=== PATIENT | female | born 1970 | race Two or more races ===

== ENCOUNTER → 2023-11-16 | Outpatient (CLI) | payer MEDICAID | END | disposition home or self-care (01) | LOC: RAD 17:24 | PROVIDERS: ATTEND Student in an Organized Health Care Education/Training Program | DX: M19.011 Primary osteoarthritis, right shoulder (principal); M54.50 Low back pain, unspecified; M25.511 Pain in right shoulder; M77.9 Enthesopathy, unspecified; M46.1 Sacroiliitis, not elsewhere classified; M47.817 Spondylosis without myelopathy or radiculopathy, lumbosacral region; M25.78 Osteophyte, vertebrae; I70.0 Atherosclerosis of aorta; Z90.49 Acquired absence of other specified parts of digestive tract | CPT/HCPCS: 72100; 73030 ==

== ENCOUNTER 2023-12-27 08:21 | Outpatient (CLI) | payer MEDICAID | END 2023-12-27 23:59 | disposition home or self-care (01) | LOC: RAD 08:21 | PROVIDERS: ATTEND Family Medicine | DX: Z87.828 Personal history of other (healed) physical injury and trauma (principal) | CPT/HCPCS: 70450 ==

== ENCOUNTER 2024-10-01 08:42 | Inpatient (IN) | payer MEDICAID ==
[~2024-10-01] VITALS: Ht 175.3 cm; Wt 120.0 kg
--- NOTE | 2024-10-01 09:03 | ELECTROCARDIOGRAPH REPORT ---
[facility] Test Date: 2024-10-01 Test Time: 09:01:05 Pat Name: BRANDO MO Department: [facility]- Patient ID: [id number] Room: [place] [address] Gender: M Adult Education Teacher: : 1970 Requested By: ISAIAS COLE Order Number: [id number] Reading MD: Dr. Andrew Bernard Measurements Intervals [place] Rate: 52 P: 43 AL: 209 QRS: 19 QRSD: 112 T: 55 QT: 424 QTc: 395 Interpretive Statements Sinus bradycardia Borderline prolonged AL interval Anterior infarct, acute (LAD) Electronically Signed On 10-02-2024 19:02:[address] Andrew Bernard Please click the below link to view image of tracing.
[2024-10-01 09:07] LABS: BASOPHILS % (AUTO) 0.4 % (0-1); EOSINOPHILS # (AUTO) 0.1 X10'3 (0-0.9); EOSINOPHILS % (AUTO) 1.4 % (0-6); HEMATOCRIT 44.2 % (35.0-45.0); HEMOGLOBIN 14.5 g/dl (12.0-16.0); LYMPHOCYTES # (AUTO) 1.8 X10'3 (1.1-4.8); LYMPHOCYTES % (AUTO) 34.4 % (21-51); MEAN CORPUSCULAR HEMOGLOBIN 27.1 PG (27.0-31.0); MEAN CORPUSCULAR HGB CONC 32.9 g/dL (33.0-36.5); MEAN CORPUSCULAR VOLUME 82.6 FL (78-98); MEAN PLATELET VOLUME 9.7 FL (7.4-10.4); MONOCYTES # (AUTO) 0.4 X10'3 (0-0.9); MONOCYTES % (AUTO) 7.4 % (2-12); NEUTROPHILS % (AUTO) 56.4 % (42-75); PLATELET COUNT 116 X10'3 (140-440); RED BLOOD COUNT 5.35 X10'6 (4.20-5.60); RED CELL DISTRIBUTION WIDTH 14.1 % (11.5-14.5); WHITE BLOOD COUNT 5.3 X10'3 (4.5-11.0)
--- NOTE | 2024-10-01 09:26 | RADIOLOGY REPORT ---
DI CHEST,SINGLE VIEW, HISTORY: CP COMPARISON: None None TECHNICAL DATA: 1 view of the chest was obtained. FINDINGS: Lines and tubes: None Cardiomediastinal silhouette: prominent Pulmonary vasculature: normal Lung expansion: normal Lung airspace: normal Lung interstitium: normal Pleura: normal Pneumothorax: no Bones: Unremarkable Other: no IMPRESSION: No acute intrathoracic abnormality.
[2024-10-01 09:28] LABS: ALANINE AMINOTRANSFERASE 62 U/L (12-78); ALBUMIN 3.9 G/DL (3.4-5.0); ALBUMIN/GLOBULIN RATIO 1.1 (1.1-1.5); ALKALINE PHOSPHATASE 82 IU/L (46-116); ANION GAP 4 (8-16); ASPARTATE AMINO TRANSFERASE 43 U/L (10-37); BILIRUBIN,TOTAL 0.7 MG/DL (0.1-1.0); BLOOD UREA NITROGEN 14 MG/DL (7-18); BUN/CREATININE RATIO 13.5 (10.0-20.0); CALCIUM 8.6 MG/DL (8.5-10.1); CHLORIDE 105 MMOL/L (99-107); CREATININE 1.04 MG/DL (0.40-0.90); GLUCOSE 101 MG/DL (70-104); POTASSIUM 3.7 MMOL/L (3.5-5.1); SODIUM 142 MMOL/L (135-145); TOTAL CARBON DIOXIDE 32.8 MMOL/L (24-32); TOTAL PROTEIN 7.3 G/DL (6.4-8.2); eCRCL 63 ML/MIN; eGFR 55 ML/MIN
[2024-10-01 09:29] LABS: PRO BRAIN NATRIURETIC PEPTIDE 86 PG/ML (0-125)
--- NOTE | 2024-10-01 09:40 | Physician Documentation ---
History of Present Illness ~ Chief Complaint: Hypertension Stated Complaint: HIGH BP Time Seen by MD: 09:03 Primary Medical Doctor: NONE Mode of Arrival: POV, Ambulatory HPI 54-year-old male presenting for severely elevated blood pressure. He states that for the past three days his blood pressure has been this way. He is on a couple of blood pressure medications and he states that he has been taking him but they have not been helping. He describes some tightness in his chest but no significant pain. He also states that he has a very mild headache but not severe. Patient endorses that he has been short of breath over the past several days as well. He otherwise denies any fever, chills or any other associated symptoms. Medication Reconciliation Allergies: Coded Allergies: No Known Allergies (Unverified , 10/01/24) Scheduled Amlodipine Besylate/Benazepril 10/40 MG* (Amlodipine-Benazepril 10/40 MG*), 1 CAP PO DAILY, (Reported) Atorvastatin Calcium* (Lipitor*), 1 TAB PO DAILY, (Reported) Cyclobenzaprine* (Cyclobenzaprine*), 1 TAB PO HS, (Reported) Gabapentin (Gabapentin), 1 CAP PO Q8H, (Reported) Gemfibrozil (LOPID tablet), 1 TAB PO Q12H, (Reported) Losartan Potassium* (Cozaar*), 1 TAB PO DAILY, (Reported) Metoprolol/Hydrochlorothiazide 100/50 MG* (Lopressor Hct 100/50 MG*), 1 TAB PO DAILY, (Reported) Naproxen (Naproxen), 1 TAB PO DAILY, (Reported) Vitamin B Complex (Vitamin B Complex), 1 CAP PO DAILY, (Reported) Miscellaneous Medications Metformin Hcl (Metformin Hcl), 500 MG PO, (Reported) Past Medical History Past Medical History: Hypertension Review of Systems All Other Systems at this time: Reviewed and Negative Physical Exam Vital Signs: Temperature: 98.2, Source: Oral, Heart Rate: 54, Respiratory Rate: 14, BP: 216/110, Pulse Oximetry: 99, Weight: 117.800 Oxygen Flow Rate: 0 Physical Exam I have reviewed the triage vitals. CONST: Well developed and well nourished. In no acute distress HENT: Head Atraumatic EYES: Pupils are equal, round and reactive to light. Normal conjunctiva NECK: Normal range of motion. Supple. CARDIO: Normal rate and regular rhythm. No murmurs, rubs, or gallops. S1, S2. PULM/CHEST: No respiratory distress. Lungs clear to auscultation. No wheeze ABD: Soft and nontender. Nondistended. Bowel sounds normal. No guarding. : Exam deferred MSK: No edema. No deformity. NEURO: Alert and oriented to person, place and time. Moving all extremities SKIN: Warm and dry. PSYCH: Normal mood and affect. Good eye contact. Progress Results/Orders Results/Orders Orders - ISAIAS COLE MD Chest,Single View (10/01/24 08:47) Monitor (10/01/24 08:47) Saline Lock (10/01/24 08:47) Oxygen (10/01/24 08:47) Ct Head (10/01/24 10:19) Page Hospitalist (10/01/24 13:37) Fill Out Med Reconciliation (10/01/24 13:37) Completed Orders - ISAIAS COLE MD Chest,Single View (10/01/24 08:47) Cbc/Diff (10/01/24 08:47) PBNP (10/01/24 08:47) Electrocardiogram (10/01/24 08:47) CMP (10/01/24 08:47) Hs Troponin I W Calculations (10/01/24 08:47) Hs Troponin I W Calculations (10/01/24 10:47) Hs Troponin I W Calculations (10/01/24 11:47) Clonidine Tablet (Catapres Tablet) (10/01/24 09:35) Ct Head (10/01/24 10:19) Clonidine Tablet (Catapres Tablet) (10/01/24 12:25) Hydralazine Inj. (Apresoline Inj.) (10/01/24 13:40) Medications Received in ER Medications (Trade) Dose Ordered Sig/Chris Route PRN Reason Start Time Stop Time Status Last Admin Dose Admin (Catapres tablet) 0.2 mg ONCE ONCE PO 10/01/24 09:35 10/01/24 09:36 DC 10/01/24 09:49 0.2 MG (Catapres tablet) 0.1 mg ONCE ONCE PO 10/01/24 12:25 10/01/24 12:26 DC 10/01/24 12:47 0.1 MG Vital Signs 10/01/24 10/01/24 10/01/24 10/01/24 08:42 09:05 09:53 12:16 Temp 98.2 98.2 98.2 Pulse 54 62 50 Resp 16 14 22 18 B/P (MAP) 216/110 202/109 (140) 169/106 (127) Pulse Ox 99 96 98 O2 Flow Rate 0 0 0 10/01/24 13:47 Temp 98.2 Pulse 49 Resp 17 B/P (MAP) 137/79 (98) Pulse Ox 98 O2 Flow Rate 0 Laboratory Tests Test 10/01/24 08:58 10/01/24 09:10 10/01/24 10:56 10/01/24 11:54 White Blood Count 5.3 Red Blood Count 5.35 Hemoglobin 14.5 Hematocrit 44.2 Mean Corpuscular Volume 82.6 Mean Corpuscular Hemoglobin 27.1 Mean Corpuscular Hemoglobin Concent 32.9 L Red Cell Distribution Width 14.1 Platelet Count 116 L Mean Platelet Volume 9.7 Neutrophils (%) (Auto) 56.4 Lymphocytes (%) (Auto) 34.4 Monocytes (%) (Auto) 7.4 Eosinophils (%) (Auto) 1.4 Basophils (%) (Auto) 0.4 Neutrophils # (Auto) 3.0 Lymphocytes # (Auto) 1.8 Monocytes # (Auto) 0.4 Eosinophils # (Auto) 0.1 Basophils # (Auto) 0.0 CBC Comment Sodium Level 142 Potassium Level 3.7 Chloride Level 105 Carbon Dioxide Level 32.8 H Anion Gap 4 L Blood Urea Nitrogen 14 Creatinine 1.04 H Estimated GFR/1.73 m2 55 BUN/Creatinine Ratio 13.5 Glucose Level 101 Calcium Level 8.6 Total Bilirubin 0.7 Aspartate Amino Transf (AST/SGOT) 43 H Alanine Aminotransferase (ALT/SGPT) 62 Alkaline Phosphatase 82 Troponin I High Sensitivity 13 14 13 Pro-B-Type Natriuretic Peptide 86 Total Protein 7.3 Albumin 3.9 Globulin 3.4 Albumin/Globulin Ratio 1.1 Chemistry Comments Glucometer 102 Troponin I High Sens Percent Delta 7 7 Troponin I Hi Sens Absolute Change 1 -1 EKG/XRAY/CT/US/VASC/MRI EKG : Additional Comment EKG as interpreted by me indicates sinus bradycardia with a rate of 56 beats per minute, no ischemia, normal axis Chest X-Ray : Interpreted By: both Additional Comments I CHEST,SINGLE VIEW, HISTORY: CP COMPARISON: None None TECHNICAL DATA: 1 view of the chest was obtained. FINDINGS: Lines and tubes: None Cardiomediastinal silhouette: prominent Pulmonary vasculature: normal Lung expansion: normal Lung airspace: normal Lung interstitium: normal Pleura: normal Pneumothorax: no Bones: Unremarkable Other: no IMPRESSION: No acute intrathoracic abnormality. CT : Interpreted By: both CT: head Impression COMPARISON: CT CT HEAD on DOS: 12/27/23 FINDINGS: There is no acute intracranial hemorrhage. No mass effect or midline shift. The ventricles and sulci are within normal limits in size for age. Basal cisterns are patent. The calvarium is unremarkable. Paranasal sinuses and mastoid air cells are clear. IMPRESSION: No CT evidence of acute intracranial abnormality. Medical Decision Making Additional Information 54-year-old male presenting with hypertensive urgency with severely elevated blood pressure. Patient's lab workup as well as CT of his head are unremarkable. Chest x-ray was unremarkable as well. EKG did not show any signs of ischemia or other ST changes. Patient was medicated with clonidine 0.1 mcg. This improved his blood pressure slightly but his diastolic was still very elevated. He was given another 0.1 mcg dose of clonidine which practically normalize his blood pressure. The patient has poor follow up however as he is in between physicians at this time. It appears that there is some mismanagement and his antihypertensive medications and that likely the patient is not on the right regimen. Furthermore he reported that they have tried various different types of medications and different combinations have not been successful. Because of this and with the risk of worsening control of his blood pressure I believe it is prudent and beneficial for him to be admitted for management of his hypertension. Report was called to the admitting hospitalist team who acc epted the patient. Departure Disposition: ADMITTED INPATIENT Admitted to Inpatient Unit: to hospitalist Admission Level of Care: Med/Surg with Tele Impression: Primary Impression: Hypertensive urgency Condition: Guarded Discharge Instructions: Hypertension, Adult Referrals: NO PRIMARY CARE PROVIDER (PCP) Signature Scribe Signature: 1 Attestation: 1 DEHKOLISSETTI,BEHRANG H MD Oct 01, 2024 09:40
[2024-10-01] MEDS: cloNIDine 0.1 mg tablet PO ONE ×2 (09:49→12:47)
[2024-10-01] MEDS ORDERED: METF-436 PO (09:52)
[2024-10-01] MEDS ORDERED: GABA-530 PO (10:02)
[2024-10-01] MEDS ORDERED: NAPR-56 PO (10:02)
[2024-10-01] MEDS ORDERED: LOSA-415 PO (10:02)
[2024-10-01] MEDS ORDERED: AMLO-139 PO (10:02)
[2024-10-01] MEDS ORDERED: GEMF600T90 PO (10:02)
[2024-10-01] MEDS ORDERED: VITA1CAP PO (10:02)
[2024-10-01] MEDS ORDERED: CYCL-1 PO (10:02)
[2024-10-01] MEDS ORDERED: ATOR20TA PO (10:02)
[2024-10-01] MEDS ORDERED: METO1TAB12 PO (10:04)
--- NOTE | 2024-10-01 10:33 | RADIOLOGY REPORT ---
CLINICAL INFORMATION: 54 years old, Female; hypertensive urgency . TECHNIQUE: Axial imaging was obtained through the brain without contrast. Coronal and sagittal reform atted images were obtained, reviewed, and stored. Images were reviewed in brain and bone windows. Al l CT scans at this medical facility are performed using dose modulation techniques as appropriate to a performed exam including the following: Automated exposure control was utilized; adjustment of the MA and/or KV according to patient size; and use of iterative reconstruction technique. CTDIvol = 69.8 2 mGy DLP = 1279.04 mGy-cm COMPARISON: CT CT HEAD on DOS: 12/27/23 FINDINGS: There is no acute intracranial hemorrhage. No mass effect or midline shift. The ventricles and sulci are within normal limits in size for age. Basal cisterns are patent. The calvarium is unre markable. Paranasal sinuses and mastoid air cells are clear. IMPRESSION: No CT evidence of acute intracranial abnormality.
[2024-10-01] MEDS: hydrALAZINE 20mg/ml inj. IV ONE (14:16)
[2024-10-01] MEDS ORDERED: magnesium sulf-water 4G/100mL 100 ML IV PRN (14:30)
[2024-10-01] MEDS ORDERED: ondansetron/PF 4mg/2ml inj IV PRN (14:30)
[2024-10-01] MEDS ORDERED: magnesium Cl slow-release 64mg tablet PO PRN (14:30)
[2024-10-01] MEDS ORDERED: magnesium hydroxide 30ml (MOM) UD suspension PO PRN (14:30)
[2024-10-01] MEDS ORDERED: acetaminophen 325mg tablet PO PRN (14:30)
[2024-10-01] MEDS ORDERED: mag hydrox/Alum hydrox/simeth 30ml oral suspension PO PRN (14:30)
[2024-10-01] MEDS: normal saline 1000ml 1,000 ML IV SCH (14:30)
[2024-10-01] MEDS ORDERED: potassium Cl 40MEQ/1/2NS 520ml 520 ML IV PRN (14:30)
[2024-10-01] MEDS ORDERED: magnesium sulf-water 2g/50mL 50 ML IV PRN (14:30)
[2024-10-01] MEDS ORDERED: potassium Cl 20 mEq SR tablet PO PRN ×2 (14:30)
--- NOTE | 2024-10-01 14:54 | HISTORY AND PHYSICAL-Residence ---
History & Physical Providers to CC Resident Creating Document: ES BUNCH RES ~ History of Present Illness Primary Medical Doctor: NONE Reason for Admit\Complaint: Hypertension crisis History of Present Illness 54 year with history of hypertension noncompliant with medication presented to the ED due to high blood pressure. Patient is homeless does not have any primary care physician, did not know about his medical condition. He denied chest pain tightness or any other symptoms however he reported had shortness of breaths for many years which exacerbated with exertion. Denied cough, sputum, abdominal pain, fever, any changes in urinary habits or bowel movement Allergies: Coded Allergies: No Known Allergies (Unverified , 10/01/24) Home Medications Home Medications Active Reported Lopressor Hct 100/50 MG* (Metoprolol/Hydrochlorothiazide 100/50 MG*) 100 Mg/50 Mg Tablet 1 Tab PO DAILY Lipitor* (Atorvastatin Calcium) 20 Mg Tablet 1 Tab PO DAILY 30 Days LOPID tablet (Gemfibrozil) 600 Mg Tablet 1 Tab PO Q12H 30 Days Gabapentin 100 Mg Capsule 1 Cap PO Q8H 30 Days Vitamin B Complex 1 Each Capsule 1 Cap PO DAILY 30 Days Naproxen 500 Mg Tablet 1 Tab PO DAILY Cyclobenzaprine* (Cyclobenzaprine HCl) 10 Mg Tablet 1 Tab PO HS 30 Days Amlodipine-Benazepril 10/40 MG* (Amlodipine/Benazepril HCl) 10 Mg/40 Mg Capsule 1 Cap PO DAILY 30 Days Cozaar* (Losartan Potassium) 25 Mg Tablet 1 Tab PO DAILY 30 Days Metformin Hcl 500 Mg Tablet 500 Mg PO Past Medical History Past Medical History Hypertension Past Surgical History Surgical History Comment Cholecystectomy Family History Family History: FH: heart attack (Grandfather and grandmother.) Past Social History Smoking: Non-Smoker Alcohol Use: Rarely Drug Use: None ROS ROS The history of present illness included a review of system, which yielded relevant positives and negatives Exam Vitals: Vital Signs Date Time Temp Pulse Resp B/P (MAP) Pulse Ox O2 Delivery O2 Flow Rate FiO2 10/01/24 14:16 49 10/01/24 13:47 98.2 17 137/79 (98) 98 0 General: General: Awake and Alert, no acute distress. HEENT: Conjunctiva pink, Sclera clear, Mucus Membranes moist. Neck: Supple without masses and tenderness. Resp: Lungs clear to auscultation bilaterally. Heart: Bradycardic, Regular Rate and rhythm, normal S1 and S2 Abdomen: Soft and non tender Extremities: No cyanosis,clubbing or edema. Skin: Warm and Dry. Neurological: Speech is clear, alert, and oriented x 4, no gross neurological deficits Diagnostic Data Last Recorded Lab Results: 10/01/24 0858 10/01/24 0858 Advance Care Planning Advanced Care plannin - 30 Minutes Additional Plan 54 years old male with history of hypertension noncompliant with medication presented due to uncontrolled blood pressure Hypertension crisis Sinus bradycardia Blood pressure on admission was 216/110, with pulse rate 54 EKG showed sinus bradycardia, first-degree block, rate [address] scan did not show any bleeding Chest x-ray no acute pathology reported In home medication in EMR there is amlodipine losartan atorvastatin however patient did not know the name of medication Trending troponin is negative Urine tox ordered, lipid panel pending Echocardiography is pending In ED received 10 mg hydralazine IV and clonidine 0.2, and repeated 0.1 after 2 hours Blood pressure now is 137/79, pulse rate 49 Restart home medication Amlodipine 10 mg, losartan 25 Code Status: full DVT prophylaxis: Heparin subQ Analgesia/sedation: none Line/tube: Peripheral GI prophylaxis: None Nutrition: Heart healthy PT: Yes Prognosis: Guarded Disposition: Continue monitoring patient in PCU floor with telemetry Es Bunch MD Internal Medicine Resident Date of Service: Oct 01, 2024 Billing Provider: MADDY MANDUJANO MD Common Visit Codes: [id number] INP/OBS CARE (HIGH) ES BUNCH, RES Oct 01, 2024 14:54 MADDY MANDUJANO MD Oct 03, 2024 16:35
[2024-10-01 16:30] VITALS: BP 129/89; PULSE 48; RESP 16; RESP 18; TEMP 97.6; O2SAT 96
[2024-10-01 18:00] VITALS: BP 139/85; PULSE 50; RESP 18; TEMP 98.7; O2SAT 94
[2024-10-01] MEDS: docusate sod 100mg capsule PO SCH (19:27)
[2024-10-01 20:00] VITALS: RESP 18; O2SAT 95
[2024-10-01] MEDS: K and/or MAG REPLACEMENT MC SCH (20:00)
[2024-10-01] MEDS: heparin, porcine 5000 units/ml vial SQ SCH (20:00)
[2024-10-01 20:47] LABS: URINE AMPHETAMINE SCREEN NEGATIVE (Neg); URINE BARBITUATE SCREEN NEGATIVE (Neg); URINE BENZODIAZEPINES SCREEN NEGATIVE (Neg); URINE CANNABINOID SCREEN NEGATIVE (Neg); URINE COCAINE SCREEN NEGATIVE (Neg); URINE METHADONE SCREEN NEGATIVE (Neg); URINE OPIATE SCREEN NEGATIVE (Neg); URINE PHENCYCLIDINE SCREEN NEGATIVE (Neg)
--- NOTE | 2024-10-01 20:55 | CARDIOLOGY REPORT ---
APPROVED REPORT EXAM: Comprehensive 2D, Doppler, and color-flow Echocardiogram. Patient Location: ER 3 Blood Pressure: 137/79 mmHg Heart Rate: 46 bpm Rhythm: Bradycardia Indications Hypertension Shortness of Breath Instrumentation Technician: None Previous echo: None 2D Dimensions RVDd 3.8 cm RA Minor4.6 cm LVOT Diameter 2.26 (1.8-2.4cm) Ao Asc Diam.3.63 cm CO 3.6 L/min M-Mode Dimensions RVDd 3.15 (2.1-3.2cm) Left Atrium(MM) 3.75 (2.5-4.0cm) IVSd 1.54 (0.7-1.1cm) LVDd 4.91 (4.0-5.6cm) Aortic Root 3.90 (2.2-3.7cm) PWd 1.57 (0.7-1.1cm) Aortic Cusp Exc 2.45 (1.5-2.0cm) IVSs 1.85 cm MV EPSS 1.0 (<0.5cm) LVDs 3.00 (2.0-3.8cm) FS (%) 39 % PWs 1.76 cm ESV(Teich) 33.1 ml LVEF(%) 70 (>50%) Aortic Valve AoV Peak Cortez. 129.1 cm/s AoV VTI 27.8 cm AO Peak GR. 6.7 mmHg AO Mean GR. 3 mmHg LVOT VTI 21.41 cm LVOT Peak Cortez. 92.1 cm/s FRIEDA(VTI)/BSA 3.08 cm2/m2 FRIEDA (VTI) 3.08 cm2 Mitral Valve MV E Velocity 63.9 cm/s MV Peak Gr. 3 mmHg MV DECEL TIME 316 ms MV A Velocity 57.0 cm/s MV Mean Gr. 1 mmHg MV PHT 72 ms E/A Ratio 1.1 MVA (PHT) 3.06 cm2 MV VMax84.1 cm/sMV VMean40.7 cm/s MVA VTI3.04 cm2MV VTI28.2 cm TDI Lateral E' P. V7.14 cm/s E/Lateral E' 8.9 Pulmonary Valve RVOT VTI 20.6 cm Tricuspid Valve TR P. Velocity 202 cm/s RAP ESTIMATE 10 mmHg TR Peak Gr. 16 mmHg RVSP 26 mmHg LEFT VENTRICLE Normal LV size and function. Moderate concentric hypertrophy. Overall LVEF is 70%. RIGHT VENTRICLE Right ventricle is moderately dilated with reduced systolic function. Estimated PA systolic pressure is 26 mmHg. ATRIA The left atrium size is normal. Right atrium is moderately dilated. AORTIC VALVE Probable trileaflet AV appears sclerotic without stenosis or insufficiency. MITRAL VALVE Mild Moderate MV annular calcification without stenosis. Trace regurgitation. TRICUSPID VALVE TV appears structurally normal with mild regurgitation. PULMONIC VALVE Normal PV without stenosis, physiologic insufficiency. GREAT VESSELS The aortic root is normal in size. IVC is not well visualized. PERICARDIUM Normal pericardium. No pericardial effusion seen. Conclusion Overall LVEF is 70%. Normal LV size and function. Moderate concentric hypertrophy. Right ventricle is moderately dilated with reduced systolic function. Estimated PA systolic pressure is 26 mmHg. Probable trileaflet AV appears sclerotic without stenosis or insufficiency. Mild Moderate MV annular calcification without stenosis. Trace regurgitation. TV appears structurally normal with mild regurgitation. Normal PV without stenosis, physiologic insufficiency. Normal pericardium. No pericardial effusion seen.
[2024-10-01 22:00] VITALS: BP 181/91; PULSE 50; RESP 18; TEMP 97.9; O2SAT 97
[2024-10-01] MEDS: hydrALAZINE 20mg/ml inj. IV PRN (22:25)
[2024-10-01 23:19] VITALS: BP 152/78; PULSE 58
[2024-10-02 02:00] VITALS: BP 155/85; PULSE 55; RESP 16; TEMP 97.7; O2SAT 98
[2024-10-02 06:00] VITALS: BP 163/90; PULSE 60; RESP 18; TEMP 98.6; O2SAT 97
[2024-10-02 06:09] LABS: BASOPHILS % (AUTO) 0.3 % (0-1); EOSINOPHILS # (AUTO) 0.1 X10'3 (0-0.9); EOSINOPHILS % (AUTO) 1.6 % (0-6); HEMOGLOBIN 13.8 g/dl (14.0-17.9); LYMPHOCYTES # (AUTO) 1.8 X10'3 (1.1-4.8); LYMPHOCYTES % (AUTO) 36.3 % (21-51); MEAN CORPUSCULAR HEMOGLOBIN 27.6 PG (27.0-31.0); MEAN CORPUSCULAR HGB CONC 33.6 g/dL (33.0-36.5); MEAN CORPUSCULAR VOLUME 82.2 FL (78-98); MEAN PLATELET VOLUME 10.1 FL (7.4-10.4); MONOCYTES # (AUTO) 0.4 X10'3 (0-0.9); MONOCYTES % (AUTO) 8.9 % (2-12); NEUTROPHILS # (AUTO) 2.6 X10'3 (1.8-7.7); NEUTROPHILS % (AUTO) 52.9 % (42-75); PLATELET COUNT 111 X10'3 (140-440); RED BLOOD COUNT 4.98 X10'6 (4.70-6.10); WHITE BLOOD COUNT 4.9 X10'3 (4.5-11.0)
[2024-10-02 06:52] LABS: ALANINE AMINOTRANSFERASE 49 U/L (12-78); ALBUMIN 3.2 G/DL (3.4-5.0); ALKALINE PHOSPHATASE 61 IU/L (46-116); ANION GAP 8 (8-16); ASPARTATE AMINO TRANSFERASE 28 U/L (10-37); BILIRUBIN,TOTAL 0.7 MG/DL (0.1-1.0); BLOOD UREA NITROGEN 13 MG/DL (7-18); BUN/CREATININE RATIO 13.4 (10.0-20.0); CALCIUM 8.2 MG/DL (8.5-10.1); CHLORIDE 106 MMOL/L (99-107); CHOL/HDL RATIO 5.5 (0.00-4.99); CHOLESTEROL 180 MG/DL (0-200); CREATININE 0.97 MG/DL (0.60-1.10); GLUCOSE 91 MG/DL (70-104); HDL CHOLESTEROL 33 MG/DL (35-60); LDL CHOLESTEROL 120 MG/DL (50-100); MAGNESIUM 2.2 MG/DL (1.5-2.4); POTASSIUM 3.5 MMOL/L (3.5-5.1); SODIUM 143 MMOL/L (135-145); TOTAL CARBON DIOXIDE 28.7 MMOL/L (24-32); TOTAL PROTEIN 6.3 G/DL (6.4-8.2); TRIGLYCERIDES 173 MG/DL (20-135); eCRCL 85 ML/MIN; eGFR 80 ML/MIN
[2024-10-02 06:54] LABS: APTT 27 SECONDS (22-32)
[2024-10-02 06:55] LABS: PROTHROMBIN TIME 10.3 SECONDS (9.0-12.0)
[2024-10-02] MEDS: atorvastatin 20mg tablet PO SCH ×2 (07:53→08:00)
[2024-10-02] MEDS: losartan 25mg tablet PO SCH (07:56)
[2024-10-02] MEDS: lisinopril 20mg tablet PO SCH (07:57)
[2024-10-02] MEDS: amLODIPine 5mg tablet PO SCH (07:58)
[2024-10-02 08:00] VITALS: RESP 18; O2SAT 97
[2024-10-02] MEDS ORDERED: losartan 50mg tablet PO SCH (08:00)
[2024-10-02] MEDS: atorvastatin 20mg tablet PO ONE (09:54)
[2024-10-02 11:11] VITALS: BP 149/91; PULSE 65; RESP 16; TEMP 98.3; O2SAT 95
[2024-10-02] MEDS: metFORMIN 500mg tablet PO SCH (11:34)
--- NOTE | 2024-10-02 12:30 | ELECTROCARDIOGRAPH REPORT ---
[facility] Test Date: 2024-10-01 Test Time: 09:31:29 Pat Name: BRANDO MO Department: EMERGENCY ROOM Room: [address] Gender: M [employer] Work[employer]: DIAN : 1970 Requested By: MADDY MANDUJANO Order Number: [id number] Reading MD: Dr. Andrew Bernard Measurements Intervals [place] Rate: 56 P: 23 VT: 203 QRS: 14 QRSD: 113 T: 53 QT: 412 QTc: 398 Interpretive Statements Sinus bradycardia Borderline prolonged VT interval Incomplete right bundle branch block Probable left ventricular hypertrophy ST elevation, consider anterior injury Electronically Signed On 10-02-2024 19:02:[address] Andrew Bernard Please click the below link to view image of tracing.
[2024-10-02] MEDS ORDERED: LISI40TA13 PO (12:51)
[2024-10-02] MEDS ORDERED: CHLO25TA10 PO (12:51)
[2024-10-02] MEDS ORDERED: METF-900 PO (12:51)
[2024-10-02] MEDS ORDERED: AMLO5TAB16 PO (12:51)
[2024-10-02] MEDS ORDERED: LACT1CAP26 PO (12:51)
[2024-10-02] MEDS ORDERED: POTA20PA31 PO (12:52)
[2024-10-02 13:05] LABS: THYROID STIMULATING HORMONE 2.15 ulU/ml (0.34-4.50)
[2024-10-02] MEDS ORDERED: ATOR20TA66 PO (13:33)
--- NOTE | 2024-10-02 15:47 | DISCHARGE SUMMARY-Residence ---
Discharge Summary Providers to CC Resident Creating Document: ES [place]O RES ~ Discharge Summary Admission Diagnosis: Hypertension urgency Hospital Course DATE OF ADMISSION: DATE OF DISCHARGE: Hospital course : 54 year with history of hypertension noncompliant with medic ation presented to the ED due to high blood pressure. Patient is homeless does not have any primary care physician, did not know about his medical condition. He denied chest pain tightness or any other symptoms however he reported had shortness of breaths for many years which exacerbated with exertion. Denied cough, sputum, abdominal pain, fever, any changes in urinary habits or bowel movement. Patient admitted with following her workup diagnosis and treatment Hypertension crisis Asymptomatic Sinus bradycardia Blood pressure on admission was 216/110, with pulse rate 54 EKG showed sinus bradycardia, first-degree block, rate [address] scan did not show any bleeding Chest x-ray no acute pathology reported In home medication in EMR there is amlodipine losartan atorvastatin however patient did not know the name of medication Trending troponin is negative TSH was normal negative urine tox, LDL was 120, cholesterol 173, hemoglobin A1c six Echocardiography is pending In ED received 10 mg hydralazine IV and clonidine 0.2, and repeated 0.1 after 2 hours Blood pressure came down after 6h to 137/79, pulse rate 49 Patient was noncompliant with medication restart home medication Amlodipine 10 mg p.o., lisinopril 40 mg daily Hydrochlorothiazide 12.25 daily added Continue metformin 500 daily Echocardiography showed: Overall LVEF is 70%. Normal LV size and function. Moderate concentric hypertrophy. Right ventricle is moderately dilated with reduced systolic function. Estimated PA systolic pressure is 26 mmHg. Probable trileaflet AV appears sclerotic without stenosis or insufficiency. Mild Moderate MV annular calcification without stenosis. Trace regurgitation. TV appears structurally normal with mild regurgitation. Normal PV without stenosis, physiologic insufficiency. Normal pericardium. No pericardial effusion seen. RENETTA Patient had history of obstructive sleep apnea however he is not compliant with CPAP Patient advised to use CPAP regularly at night and the benefit of treating RENETTA discussed with him. Laboratory Tests Test 10/01/24 08:58 10/01/24 09:10 10/01/24 10:56 10/01/24 11:45 White Blood Count 5.3 X10'3 Red Blood Count 5.35 X10'6 Hemoglobin 14.5 g/dl Hematocrit 44.2 % Mean Corpuscular Volume 82.6 FL Mean Corpuscular Hemoglobin 27.1 PG Mean Corpuscular Hemoglobin Concent 32.9 g/dL Red Cell Distribution Width 14.1 % Platelet Count 116 X10'3 Mean Platelet Volume 9.7 FL Neutrophils (%) (Auto) 56.4 % Lymphocytes (%) (Auto) 34.4 % Monocytes (%) (Auto) 7.4 % Eosinophils (%) (Auto) 1.4 % Basophils (%) (Auto) 0.4 % Neutrophils # (Auto) 3.0 X10'3 Lymphocytes # (Auto) 1.8 X10'3 Monocytes # (Auto) 0.4 X10'3 Eosinophils # (Auto) 0.1 X10'3 Basophils # (Auto) 0.0 X10'3 CBC Comment Sodium Level 142 MMOL/L Potassium Level 3.7 MMOL/L Chloride Level 105 MMOL/L Carbon Dioxide Level 32.8 MMOL/L Anion Gap 4 Blood Urea Nitrogen 14 MG/DL Creatinine 1.04 MG/DL Estimated GFR/1.73 m2 55 ML/MIN BUN/Creatinine Ratio 13.5 Glucose Level 101 MG/DL Hemoglobin A1c 6.0 % Calcium Level 8.6 MG/DL Total Bilirubin 0.7 MG/DL Aspartate Amino Transf (AST/SGOT) 43 U/L Alanine Aminotransferase (ALT/SGPT) 62 U/L Alkaline Phosphatase 82 IU/L Troponin I High Sensitivity 13 ng/L 14 ng/L Pro-B-Type Natriuretic Peptide 86 PG/ML Total Protein 7.3 G/DL Albumin 3.9 G/DL Globulin 3.4 G/DL Albumin/Globulin Ratio 1.1 Chemistry Comments Glucometer 102 mg/dl Troponin I High Sens Percent Delta 7 % Troponin I Hi Sens Absolute Change 1 ng/L Ethyl Alcohol Level < 10 MG/DL Test 10/01/24 11:54 10/01/24 17:26 10/01/24 20:00 10/02/24 01:19 Troponin I High Sensitivity 13 ng/L Troponin I High Sens Percent Delta 7 % Troponin I Hi Sens Absolute Change -1 ng/L Glucometer 131 mg/dl 82 mg/dl Urine Opiates Screen Negative Urine Methadone Screen Negative Urine Fentanyl Screen Negative Urine Barbiturates Screen Negative Urine Phencyclidine Screen Negative Urine Amphetamines Screen Negative Urine Benzodiazepines Screen Negative Urine Cocaine Screen Negative Urine Cannabinoids Screen Negative Drug Screen Comment Test 10/02/24 05:37 10/02/24 06:03 White Blood Count 4.9 X10'3 Red Blood Count 4.98 X10'6 Hemoglobin 13.8 g/dl Hematocrit 41.0 % Mean Corpuscular Volume 82.2 FL Mean Corpuscular Hemoglobin 27.6 PG Mean Corpuscular Hemoglobin Concent 33.6 g/dL Red Cell Distribution Width 14.0 % Platelet Count 111 X10'3 Mean Platelet Volume 10.1 FL Neutrophils (%) (Auto) 52.9 % Lymphocytes (%) (Auto) 36.3 % Monocytes (%) (Auto) 8.9 % Eosinophils (%) (Auto) 1.6 % Basophils (%) (Auto) 0.3 % Neutrophils # (Auto) 2.6 X10'3 Lymphocytes # (Auto) 1.8 X10'3 Monocytes # (Auto) 0.4 X10'3 Eosinophils # (Auto) 0.1 X10'3 Basophils # (Auto) 0.0 X10'3 CBC Comment Sodium Level 143 MMOL/L Potassium Level 3.5 MMOL/L Chloride Level 106 MMOL/L Carbon Dioxide Level 28.7 MMOL/L Anion Gap 8 Blood Urea Nitrogen 13 MG/DL Creatinine 0.97 MG/DL Estimated GFR/1.73 m2 80 ML/MIN BUN/Creatinine Ratio 13.4 Glucose Level 91 MG/DL Calcium Level 8.2 MG/DL Magnesium Level 2.2 MG/DL Total Bilirubin 0.7 MG/DL Aspartate Amino Transf (AST/SGOT) 28 U/L Alanine Aminotransferase (ALT/SGPT) 49 U/L Alkaline Phosphatase 61 IU/L Total Protein 6.3 G/DL Albumin 3.2 G/DL Globulin 3.1 G/DL Albumin/Globulin Ratio 1.0 Triglycerides Level 173 MG/DL Cholesterol Level 180 MG/DL LDL Cholesterol 120 MG/DL HDL Cholesterol 33 MG/DL Cholesterol/HDL Ratio 5.5 Thyroid Stimulating Hormone (TSH) 2.15 ulU/ml Chemistry Comments Prothrombin Time 10.3 SECONDS INR International Normalized Ratio 1.0 INR Activated Partial Thromboplast Time 27 SECONDS Coagulation Comments Physical exam on discharge day General: Awake and Alert, no acute distress. HEENT: Conjunctiva pink, Sclera clear, Mucus Membranes moist. Neck: Supple without masses and tenderness. Resp: Lungs clear to auscultation bilaterally. Heart: Bradycardic, Regular Rate and rhythm, normal S1 and S2 Abdomen: Soft and non tender Extremities: No cyanosis,clubbing or edema. Skin: Warm and Dry. Neurological: Speech is clear, alert, and oriented x 4, no gross neurological deficits Patient discharged home in a stable situation with following instruction Please continue taking medication as directed. Follow-up with your primary care doctor in one week. Repeat BMP in one week. You was diagnosed with obstructive sleep apnea in the past please use CPAP every night. Discharge Diagnosis\Comment: Hypertension crisis Obstructive sleep apnea Dyslipidemia Prediabetic Operations\Procedures: none Consultants: none Complications: none Condition on DC: Stable New Medications: Amlodipine Besylate (Amlodipine Besylate) 5 Mg Tablet 2 TAB PO DAILY for 30 Days, #30 TAB 0 Refills Atorvastatin Calcium (Atorvastatin Calcium) 20 Mg Tablet 40 MG PO DAILY for 30 Days, #30 TAB Chlorthalidone (Chlorthalidone) 25 Mg Tablet 0.5 TAB PO DAILY for 30 Days, #30 TAB 0 Refills Lactobacillus Rhamnosus (Culturelle) 10 Billion Cell Capsule 1 CAP PO DAILY for 30 Days, #30 CAP 0 Refills Lisinopril* (Lisinopril*) 40 Mg Tablet 1 TAB PO DAILY for 30 Days, #30 TAB Metformin Hcl* (Metformin ER*) 500 Mg Tab.sr.24h 1 TAB PO DAILY for 30 Days, #30 TAB Potassium Chloride (Potassium Chloride) 20 Meq Packet 1 PKT PO DAILY for 30 Days, #30 PKT 0 Refills Continued Medications: Metformin Hcl (Metformin Hcl) 500 Mg Tablet 500 MG PO, TAB Discontinued Medications: Amlodipine Besylate/Benazepril 10/40 MG* (Amlodipine-Benazepril 10/40 MG*) 10 Mg/40 Mg Capsule 1 CAP PO DAILY for 30 Days, #30 CAP Losartan Potassium* (Cozaar*) 25 Mg Tablet 1 TAB PO DAILY for 30 Days, #30 TAB Metoprolol/Hydrochlorothiazide 100/50 MG* (Lopressor Hct 100/50 MG*) 100 Mg/50 Mg Tablet 1 TAB PO DAILY, TAB Discharge Summary: See hospital course *Problems/Diagnosis: (1) Hypertensive urgency Status: Acute Total Time Spent on D/C: > 30 Minutes Date of Service: Oct 02, 2024 Billing Provider: MADDY MANDUJANO MD Common Visit Codes: 34935-BAT/OBS DISCH DAY >30min ES [place], RES Oct 02, 2024 15:41 MADDY MANDUJANO MD Oct 03, 2024 16:35
== END 2024-10-02 14:10 | disposition home or self-care (01) | DRG 199 ==
LOC: ER 08:43 → EDSEX 08:43 → ED HOLD 13:54 → PCU 3S 16:00
PROVIDERS: ADMIT Family Medicine; ATTEND Family Medicine
DX: I16.0 Hypertensive urgency (principal); G47.33 Obstructive sleep apnea (adult) (pediatric); I10 Essential (primary) hypertension; R73.03 Prediabetes; Z79.899 Other long term (current) drug therapy; Z90.49 Acquired absence of other specified parts of digestive tract
CPT/HCPCS: 36415; 70450; 71045; 80053; 80061; 80305; 80320; 82948; 83036; 83735; 83880; 84443; 84484; 85025; 85610; 85730; 87081; 93005; 93306; 99285; G0378; J0360; J7030

== ENCOUNTER 2024-10-23 20:03 | Emergency (ER) | payer MEDICAID, SELFPAY ==
[~2024-10-23] VITALS: Ht 175.3 cm; Wt 118.2 kg
[~2024-10-23 20:03] MED LIST: AMLO5TAB16 PO; ATOR20TA66 PO; CHLO25TA10 PO; LACT1CAP26 PO; LISI40TA13 PO; METF-436 PO; METF-900 PO; POTA20PA31 PO
--- NOTE | 2024-10-23 20:09 | ELECTROCARDIOGRAPH REPORT ---
[facility] Test Date: 2024-10-23 Test Time: 20:06:57 Pat Name: BRANDO MO Department: EMERGENCY ROOM Room: Gender: M Market Researcher: EAMON : 1970 Requested By: KELLY LOUIS Order Number: [id number] Reading MD: Dr. Andrew Bernard Measurements Intervals Jackson Rate: 68 P: 45 OR: 195 QRS: -5 QRSD: 107 T: 50 QT: 371 QTc: 395 Interpretive Statements Sinus rhythm Abnormal R-wave progression, late transition Electronically Signed On 10-25-2024 21:44:[address] Andrew Bernard Please click the below link to view image of tracing.
[2024-10-23 20:12] VITALS: BP 162/98; TEMP 97.6
[2024-10-23 20:19] LABS: BASOPHILS % (AUTO) 0.4 % (0-1); EOSINOPHILS # (AUTO) 0.1 X10'3 (0-0.9); EOSINOPHILS % (AUTO) 0.8 % (0-6); HEMATOCRIT 42.3 % (42.0-52.0); HEMOGLOBIN 14.2 g/dl (14.0-17.9); LYMPHOCYTES # (AUTO) 2.5 X10'3 (1.1-4.8); LYMPHOCYTES % (AUTO) 36.7 % (21-51); MEAN CORPUSCULAR HEMOGLOBIN 27.7 PG (27.0-31.0); MEAN CORPUSCULAR HGB CONC 33.6 g/dL (33.0-36.5); MEAN CORPUSCULAR VOLUME 82.5 FL (78-98); MEAN PLATELET VOLUME 9.9 FL (7.4-10.4); MONOCYTES # (AUTO) 0.5 X10'3 (0-0.9); NEUTROPHILS # (AUTO) 3.6 X10'3 (1.8-7.7); NEUTROPHILS % (AUTO) 54.1 % (42-75); PLATELET COUNT 127 X10'3 (140-440); RED BLOOD COUNT 5.13 X10'6 (4.70-6.10); WHITE BLOOD COUNT 6.7 X10'3 (4.5-11.0)
--- NOTE | 2024-10-23 20:36 | RADIOLOGY REPORT ---
CHEST RADIOGRAPH Indication: CP Technique: Single frontal view of the chest was obtained Comparison: DI CHEST,SINGLE VIEW on DOS: 10/01/24 FINDINGS: Lines and Tubes: None Lungs: No focal consolidation. Pleura: No effusion. No pneumothorax. Cardiomediastinal contours: Unremarkable Bones: No acute osseous abnormality. IMPRESSION: 1. No acute cardiopulmonary disease.
[2024-10-23 20:40] LABS: ALANINE AMINOTRANSFERASE 64 U/L (12-78); ALBUMIN 4.2 G/DL (3.4-5.0); ALBUMIN/GLOBULIN RATIO 1.2 (1.1-1.5); ALKALINE PHOSPHATASE 99 IU/L (46-116); ANION GAP 8 (8-16); ASPARTATE AMINO TRANSFERASE 42 U/L (10-37); BILIRUBIN,TOTAL 0.4 MG/DL (0.1-1.0); BLOOD UREA NITROGEN 18 MG/DL (7-18); BUN/CREATININE RATIO 14.1 (10.0-20.0); CALCIUM 9.1 MG/DL (8.5-10.1); CHLORIDE 101 MMOL/L (99-107); CREATININE 1.28 MG/DL (0.60-1.10); GLUCOSE 94 MG/DL (70-104); POTASSIUM 3.6 MMOL/L (3.5-5.1); SODIUM 141 MMOL/L (135-145); TOTAL CARBON DIOXIDE 32.2 MMOL/L (24-32); TOTAL PROTEIN 7.7 G/DL (6.4-8.2); eCRCL 64 ML/MIN; eGFR 58 ML/MIN
[2024-10-23 20:43] LABS: PRO BRAIN NATRIURETIC PEPTIDE < 30 PG/ML (0-125)
[2024-10-24 00:34] VITALS: PULSE 61; O2SAT 94
--- NOTE | 2024-10-24 00:40 | Physician Documentation ---
History of Present Illness ~ Chief Complaint: Chest Pain Stated Complaint: CP Time Seen by MD: 00:36 Primary Medical Doctor: NONE HPI Patient presents to the emergency room for evaluation of left-sided chest pain. He is concerned because he is having some numbness in his left upper extremity. Patient was seen here recently for hypertensive urgency. He is working with his doctor control his blood pressure. He reports having a negative stress test a proximally one-week ago. 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 No current chest pain. Medication Reconciliation Allergies: Coded Allergies: No Known Allergies (Unverified , 10/01/24) Scheduled Amlodipine Besylate (Amlodipine Besylate), 2 TAB PO DAILY Atorvastatin Calcium (Atorvastatin Calcium), 40 MG PO DAILY Chlorthalidone (Chlorthalidone), 0.5 TAB PO DAILY Lactobacillus Rhamnosus (Culturelle), 1 CAP PO DAILY Lisinopril* (Lisinopril*), 1 TAB PO DAILY Metformin Hcl* (Metformin ER*), 1 TAB PO DAILY Potassium Chloride (Potassium Chloride), 1 PKT PO DAILY Miscellaneous Medications Metformin Hcl (Metformin Hcl), 500 MG PO, (Reported) Past Medical History Past Medical History: Hypertension Patient History: FH: heart attack (Grandfather and grandmother.) Alcohol Use: Rarely Drug Use: none Review of Systems ROS All review of systems negative except as per HPI Physical Exam Vital Signs: Temperature: 97.6, Source: Temporal, Heart Rate: 61, Respiratory Rate: 14, BP: 162/98, Pulse Oximetry: 94, Weight: 118.180 Oxygen Flow Rate: 0 Physical Exam General: Patient is awake, alert, oriented x4 in no acute distress and well appearing.~ Head: Normocephalic and atraumatic. Eyes: Conjunctival normal. EOMI. PERRL. ENT: Mucous membranes moist. Neck: Supple, trachea is midline. Chest: Clear to auscultation bilaterally without rales, rhonchi, or wheezes. There is no accessory muscle use or retractions. Cardiac: RRR without murmurs, gallops, or rubs. Extremities: Normal strength. Normal range of motion. Paresthesia noted in the ulnar nerve distribution of his left upper extremity Progress Results/Orders Results/Orders Orders - OCHOA RICHARDSON MD Chest,Single View (10/23/24 20:27) Monitor (10/23/24 20:06) Saline Lock (10/23/24 20:06) Oxygen (10/23/24 20:06) Completed Orders - OCHOA RICHARDSON MD Chest,Single View (10/23/24 20:27) Cbc/Diff (10/23/24 20:06) PBNP (10/23/24 20:06) Electrocardiogram (10/23/24 20:06) CMP (10/23/24 20:06) Hs Troponin I W Calculations (10/23/24 20:06) Hs Troponin I W Calculations (10/23/24 22:06) Hs Troponin I W Calculations (10/23/24 23:06) Vital Signs 10/23/24 10/24/24 20:12 00:34 Temp 97.6 Pulse 67 61 Resp 18 14 B/P (MAP) 162/98 Pulse Ox 96 94 O2 Flow Rate 0 Laboratory Tests Test 10/23/24 20:08 10/23/24 21:58 10/23/24 22:53 White Blood Count 6.7 Red Blood Count 5.13 Hemoglobin 14.2 Hematocrit 42.3 Mean Corpuscular Volume 82.5 Mean Corpuscular Hemoglobin 27.7 Mean Corpuscular Hemoglobin Concent 33.6 Red Cell Distribution Width 14.0 Platelet Count 127 L Mean Platelet Volume 9.9 Neutrophils (%) (Auto) 54.1 Lymphocytes (%) (Auto) 36.7 Monocytes (%) (Auto) 8.0 Eosinophils (%) (Auto) 0.8 Basophils (%) (Auto) 0.4 Neutrophils # (Auto) 3.6 Lymphocytes # (Auto) 2.5 Monocytes # (Auto) 0.5 Eosinophils # (Auto) 0.1 Basophils # (Auto) 0.0 CBC Comment Sodium Level 141 Potassium Level 3.6 Chloride Level 101 Carbon Dioxide Level 32.2 H Anion Gap 8 Blood Urea Nitrogen 18 Creatinine 1.28 H Estimated GFR/1.73 m2 58 BUN/Creatinine Ratio 14.1 Glucose Level 94 Calcium Level 9.1 Total Bilirubin 0.4 Aspartate Amino Transf (AST/SGOT) 42 H Alanine Aminotransferase (ALT/SGPT) 64 Alkaline Phosphatase 99 Troponin I High Sensitivity 12 12 14 Pro-B-Type Natriuretic Peptide < 30 Total Protein 7.7 Albumin 4.2 Globulin 3.5 Albumin/Globulin Ratio 1.2 Chemistry Comments Troponin I High Sens Percent Delta 0 16 Troponin I Hi Sens Absolute Change 0 2 EKG/XRAY/CT/US/VASC/MRI EKG : Additional Comment EKG interpreted by myself shows time of 2005, rate 68, sinus rhythm, normal axis, no ST changes Chest X-Ray : Additional Comments Exam: CHEST,SINGLE VIEW CHEST RADIOGRAPH Indication: CP Technique: Single frontal view of the chest was obtained Comparison: DI CHEST,SINGLE VIEW on DOS: 10/01/24 FINDINGS: Lines and Tubes: None Lungs: No focal consolidation. Pleura: No effusion. No pneumothorax. Cardiomediastinal contours: Unremarkable Bones: No acute osseous abnormality. IMPRESSION: 1. No acute cardiopulmonary disease. Medical Decision Making Findings Patient presents to the emergency room for evaluation of left-sided chest pain. Differentials include but are not limited to ACS pulmonary embolism acute aortic pathology musculoskeletal pain therefore emergent labs and imaging indicated. Labs reassuring for negative troponins. The fact that patient has had a negative stress test recently he is also very reassuring as well as excellent follow up with his enterprise application developer. ER precautions discussed. I do not feel patient requires investigation into pulmonary embolism or acute aortic pathology as patient is currently asymptomatic. Patient does have paresthesia in the ulnar nerve distribution in his left. History of neck problems along with shoulder problems. I feel this is likely related to that as I am unable to elicit any worsening of the paresthesia with physical exam. Departure Disposition: HOME / SELF CARE / HOMELESS Impression: Primary Impression: Chest pain Condition: Stable Discharge Instructions: Nonspecific Chest Pain, Adult Referrals: NO PRIMARY CARE PROVIDER (PCP) Signature Scribe Signature: No scribe Attestation: The note accurately reflects work and decisions made by me.Ochoa Richardson MD 10/24/24 01:04 OCHOA RICHARDSON MD October 24, 2024 00:40
[2024-10-24 01:09] VITALS: RESP 15
== END 2024-10-24 01:29 | disposition home or self-care (01) ==
LOC: ER 20:04
DX: R07.89 Other chest pain (principal); R20.0 Anesthesia of skin; I10 Essential (primary) hypertension
CPT/HCPCS: 36415; 71045; 80053; 83880; 84484; 85025; 93005; 99285